=== PATIENT | female | born 1955 | race Caucasian/White ===

== ENCOUNTER 2016-09-16 05:52 | Emergency (ER) | payer SELFPAY ==
[~2016-09-16] VITALS: Ht 170.2 cm; Wt 129.1 kg
[~2016-09-16 05:52] MED LIST: AMIO400T4 PO; EVEP1CAP PO; LEVO75TA4 PO; METO100T3 PO; MULT-1018 PO; PANT40TA2 PO; WARF5TAB7 PO
[2016-09-16 05:55] VITALS: BP 134/80; PULSE 72; RESP 16; O2SAT 96
[2016-09-16] MEDS ORDERED: OMEP20TA24 PO (06:00)
[2016-09-16] MEDS ORDERED: METO50TA3 PO (06:00)
[2016-09-16] MEDS ORDERED: OXYB5TAB10 PO (06:00)
--- NOTE | 2016-09-16 06:23 | ED.REPORT ---
HPI-Abd Pain F 40 and Over Date of Service Sep 16, 2016 ED Provider: Leela Carmen MD A 61 year old female with a history of paroxysmal atrial tachycardia, chronic constipation and atrial fibrillation with ablation presents to the ED complaining of constipation. The pt has not had a normal bowel movement in two weeks, and is now experiencing waves of diffuse abdominal cramping, vomiting and diarrhea. The diarrhea began four days ago and is characterized by frequent episodes with small amounts of liquid stool, though she still feels constipated. She has been vomiting for two days and has noticed decreased appetite, but denies fever, chills or weakness. The pt has taken stool softeners in the last few days without significant relief. She has experienced constipation before, but her symptoms have never been this severe. Nursing Notes Stated Complaint: CONSTIPATED Chief Complaint: Female Abdominal Pain Nursing Notes Reviewed: Yes Allergies: Coded Allergies: barium iodide (Verified Allergy, Severe, Anaphylaxis, 09/16/16) procainamide (Verified Allergy, Severe, Shortness of Breath, 09/16/16) Iodinated Contrast- Oral and IV Dye (Verified Allergy, Mild, HOT AND DIZZY , 09/16/16) During XR IVP in the past experienced hot/flush feeling and dizziness, was given benadryl, told it was a reaction to iodine contrast. TAPE (Unverified Allergy, Mild, 09/16/16) celecoxib (Verified Allergy, Unknown, 09/16/16) paroxetine (Verified Allergy, Unknown, 09/16/16) Uncoded Allergies: MAKEUP (Allergy, Mild, 08/11/13) PERFUMES (Allergy, Mild, 08/11/13) SOAPS (Allergy, Mild, 08/11/13) Scheduled Evepr/Linoleic/Gamolenic/Cranb (Evening [employer] Oil Softgel) 1 Each Capsule 1 EACH PO DAILY Levothyroxine (Levothyroxine) 75 Mcg Tablet 75 MCG PO DAILY Metoprolol Tartrate (Metoprolol Tartrate) 50 Mg Tablet 50 MG PO BID Multivitamin (Multi Vitamin Daily) 1 Each Tablet 1 EACH PO DAILY Omeprazole Magnesium (Prilosec Otc) 20 Mg Tablet.dr 20 MG PO BID Oxybutynin Chloride (Oxybutynin Chloride) 5 Mg Tablet 5 MG PO BID Pantoprazole DR (Protonix) 40 Mg Tablet.dr 40 MG PO DAILY Warfarin Sodium (Warfarin Sodium) 5 Mg Tablet 5 MG PO DAILY General Time Seen by MD: 06:04 Chief Complaint Constipation Hx Obtained From: Patient Arrived By: Walk-in Sudden in Onset?: No Onset Occurred: More than a week ago... Symptom Duration: Since onset Recent Healthcare: No recent hospitalization, Recent doctor visit Similar Sx Previous: No Past Medical History Past Medical History paroxysmal atrial tachycardia chronic constipation atrial fibrillation with ablation Past Surgical History cardiac ablation right ovarian cyst surgery laproscopy Reports: Hysterectomy Smoking History Former Smoker Social History Other Social History: Good social support, Ambulatory Status Independent Review of Systems decreased appetite Constitutional: Denies: Chills, Fever, Weakness - generalized Respiratory: Denies: Non-productive cough, Shortness of breath GI: Reports: Abdominal pain, Constipation, Diarrhea, Nausea, Vomiting Musculoskeletal: Denies: Back pain, Neck pain Complete sys rev & neg: except as marked. Physical Exam Vital Signs Vital Signs (First) Date Time Temp Pulse Resp B/P Pulse Ox O2 Delivery O2 Flow Rate FiO2 09/16/16 05:55 36.5 72 16 134/80 96 Room Air Initial VS: Reviewed General/Constitutional: Awake, Alert Respiratory / Chest: Atraumatic, Breath sounds NL, Breath sounds = bilat, No respiratory distress Cardiovascular: Heart rate NL, Regular rhythm, Heart sounds NL Abdomen: Atraumatic, Soft Bowel Sounds / Distention: Positive: Bowel sounds hyperactive Shah's sign negative abdominal tenderness from LLQ to suprapubic area Back: Atraumatic, Full range of motion Head / Eyes: Atraumatic, Normocephalic, PERRL, EOMI ENT: Atraumatic, Airway patent, Mucous membranes moist Skin: Atraumatic, Color NL, No rash, Warm, Dry Rectum / Perineum: Atraumatic no stool in rectal vault guaiac negative Neurologic: Oriented X3, Speech NL, No motor deficits, No sensory deficits Neck: Atraumatic, Supple, Full range of motion Upper Extremity / MS: Atraumatic, Full range of motion Lower Extremity / Pelvis / MS: Atraumatic, Full range of motion Psychiatric: Affect NL, Mood NL Interpretation & Diagnostics Lab Results Interpretation Result Diagram: 09/16/16 0830 09/16/16 0830 Test 09/16/16 08:30 White Blood Count 13.0th/mm3 (3.8-10.1) Red Blood Count 4.42mil/mm3 (3.90-5.20) Hemoglobin 13.4g/dL (12.0-15.6) Hematocrit 41.7% (35.0-46.0) Mean Corpuscular Volume 94.3fL (81-100) Mean Corpuscular Hemoglobin 30.3pg (27.0-35.0) Mean Corpuscular Hemoglobin Concent 32.1% (32.0-37.0) Red Cell Distribution Width 13.4% (12.3-15.4) Platelet Count 236bil/L (150-400) Neutrophils (%) (Auto) 74.1% (40-74) Lymphocytes (%) (Auto) 13.4% (14-46) Monocytes (%) (Auto) 9.3% (4-12) Eosinophils (%) (Auto) 2.8% (0-5) Basophils (%) (Auto) 0.1% (0-3) Sodium Level 140mEq/L (134-144) Potassium Level 3.6mEq/L (3.5-5.2) Chloride Level 102mEq/L (97-108) Carbon Dioxide Level 23mmol/L (18-29) Blood Urea Nitrogen 13mg/dL (6-24) Creatinine 0.85mg/dL (0.57-1.00) Estimat Glomerular Filtration Rate 98mL/min (>59) Glucose Level 115mg/dL (60-99) Calcium Level 8.9mg/dL (8.5-10.1) Magnesium Level 2.0mg/dL (1.6-2.6) Total Bilirubin 0.5mg/dL (0.0-1.2) Aspartate Amino Transf (AST/SGOT) 14U/L (0-50) Alanine Aminotransferase (ALT/SGPT) 11U/L (0-32) Alkaline Phosphatase 79U/L (25-165) Total Protein 6.5g/dL (6.4-8.4) Albumin 3.6g/dL (3.4-5.0) Lipase 12U/L (13-60) X-Ray Abdominal Interpretation IMPRESSION: Nonspecific bowel gas pattern without definite evidence of obstruction. Dictated by: Betsey Loera MD, PhD on 09/16/2016 at 7:51 Approved by: Betsey Loera MD, PhD on 09/16/2016 at 7:52 Interpretation / Wet Read by: Interpret - Radiologist CT Abd / Pelvis Interpretation IMPRESSION: 1. There is a small amount of free fluid. No bowel thickening or obstruction. 2. Cholelithiasis. No CT evidence for acute cholecystitis. 3. Moderate-sized hiatal hernia. 4. Nodular groundglass infiltrates in the right lower lobe. Recommend ankle correlation for right lower lobe pneumonia or pneumonitis. 5. Small fat containing umbilical hernia. Dictated by: Angel Tompkins M.D. on 09/16/2016 at 8:59 Transcribed by: SARAVANAN on 09/16/2016 at 9:11 Interpretation / Wet Read by: Interpret - Radiologist Re-Eval/Medical Decision Med Decision/Clinical Course Presents with significant abdominal pain with liquid stool. Initial x-ray was done to see if there was evidence for obstruction or obvious significant fecal loading. Unremarkable abdominal series. Labs with low grade leukocytosis. CT scan obtained. No acute findings specifically no diverticulitis. Significant stool throughout the entire colon. Suspect that constipation is much more of her underlying primary issue and will treat as such. Questions were answered and findings were explained Source of Hx: Old records Re-Evaluation/Progress #1: Time of Eval: 07:27 Patient Status: Condition improved Re-Evaluation/Progress Note: Pt rechecked, whose pain has improved with medication. She is informed of her x-ray results and the need for further imaging studies. Re-Evaluation/Progress #2: Time of Eval: 09:36 Patient Status: Condition improved Re-Evaluation/Progress Note: Pt rechecked, who is comfortable. The diagnosis and plan for discharge are discussed. The pt understands and agrees with the plan. All questions are addressed at this time. Counseled Regarding: Diagnosis, Lab results, Need for follow-up, When/why to return to ED Discharge & Departure Primary Impression: Constipation Constipation type: unspecified constipation type Qualified Code: K59.00 - Constipation, unspecified Ruled Out: Diverticulitis, Pancreatitis, Appendicitis, UTI (urinary tract infection), Clostridium difficile diarrhea, Cholecystitis Disposition: Home Discharge Condition All VS Reviewed: Yes Condition: Stable Patient Instructions: Constipation (ED) Additional Instructions: Thank you for allowing us to be a part of your care. Your CT scan show no lifethreathenings issues but it does show significant constipation. I suspect that the majority of your symptoms are due to constipation. Drink one bottle of magnesium citrate today. If you do not get a significant return with a large amount of stool, drink another bottle tomorrow (available over the counter). Call your primary care physician to arrange a follow up appointment this week. Return to the emergency department if you develop any new or worsening symptoms. I hope you feel better! Referrals: Lamine Gleason ND (PCP) Erika Attestation Portions of this note were transcribed by Leo Duran. I, Dr. Carmen personally performed the history, physical exam and medical decision-making; I reviewed and confirmed the accuracy of the information in the transcribed note. Signed by: Erika Schaffer, 09/16/2016 and 1009. copies to: Lamine Gleason ND, Shawna L MD Sep 16, 2016 06:22 LEO DURAN Sep 16, 2016 06:32
[2016-09-16] MEDS ORDERED: oxyCODONE-Acetamin 5-325 mg Tablet PO ONE (06:45)
[2016-09-16 07:38] VITALS: BP 112/56; PULSE 62; O2SAT 96
--- NOTE | 2016-09-16 07:54 | DRSVH ---
PROCEDURE: X-RAY ACUTE ABDOMINAL SERIES ([id number]) INDICATIONS: abdominal pain TECHNIQUE: One view chest and two views of the abdomen were acquired. COMPARISON: None. FINDINGS: Surgical changes and devices: None. Chest: Lungs are clear. Heart size is normal. No pleural effusions. No pneumoperitoneum. Abdomen: Bowel gas pattern is nonspecific. No dilated loops of bowel are identified. Scattered air-f luid levels are noted.. No suspicious calcifications. Visualized solid organ contours appear normal . Bones: No suspicious bony lesions. IMPRESSION: Nonspecific bowel gas pattern without definite evidence of obstruction. Dictated by: Betsey Loera MD, PhD on 09/16/2016 at 7:51 Approved by: Betsey Loera MD, PhD on 09/16/2016 at 7:52
[2016-09-16] MEDS ORDERED: 0.9% Sodium Chloride 1,000 ML IV ONE (08:10)
[2016-09-16 08:48] LABS: BASOPHILS % (AUTO) 0.1 % (0-3); EOSINOPHILS % (AUTO) 2.8 % (0-5); MONOCYTES % (AUTO) 9.3 % (4-12); Mean Corpuscular Hemoglobin 30.3 pg (27.0-35.0); Mean Corpuscular Volume 94.3 fL (81-100); NEUTROPHILS % (AUTO) 74.1 % (40-74); Platelet Count 236 bil/L (150-400)
--- NOTE | 2016-09-16 09:12 | DRSVH ---
PROCEDURE: CT ABDOMEN AND PELVIS WITHOUT CONTRAST ([id number]) INDICATIONS: 61 year-old woman with abdominal pain, diarrhea. TECHNIQUE: After the administration of oral contrast, 5 mm thick sections acquired from the diaphragms to the sy mphysis. 5 mm coronal and sagittal reformats were performed. For radiation dose reduction, the foll owing was used: automated exposure control, adjustment of mA and/or kV according to patient size. COMPARISON: [facility], CR, XR ABD ACUTE SERIES 3VW, 09/16/2016, 6:50. [facility], CT, ANGIO CHEST WITH CONTRAST, 08/02/2013, 9:14. FINDINGS: Image quality: Excellent. ABDOMEN: Lung bases: Nodular groundglass infiltrates in the right lower lobe. Heart size is normal. There is a moderate-sized hiatal hernia. Solid organs: Liver and spleen are normal in size. Gallbladder contains multiple calcified gallston es. No gallbladder wall thickening or pericholecystic fluid collection. Pancreas is normal in size. No adrenal nodules. Both kidneys are normal in size, without hydronephrosis or nephrolithiasis. Peritoneum and bowel: There is a moderate amount of stool in colon. Small bowel loops demonstrate no rmal wall thickness and caliber. No free air. There is a small amount of free fluid. Nodes and vessels: No retroperitoneal or mesenteric adenopathy by size criteria. Aorta and inferior vena cava are normal in size. Miscellaneous: There is a small fat containing umbilical hernia. PELVIS: Genitourinary: Bladder wall thickness is normal. Miscellaneous: No inguinal hernias or adenopathy. Bones: No suspicious bony lesions. No vertebral body compression fractures. IMPRESSION: 1. There is a small amount of free fluid. No bowel thickening or obstruction. The CT finding is nonsp ecific and may be secondary to gastroenteritis. Recommend clinical correlation followup. 2. Cholelithiasis. No CT evidence for acute cholecystitis. 3. Moderate-sized hiatal hernia. 4. Nodular groundglass infiltrates in the right lower lobe. Recommend clinical correlation for right lower lobe pneumonia/pneumonitis. 5. Small fat containing umbilical hernia. Dictated by: Angel Tompkins M.D. on 09/16/2016 at 8:59 Transcribed by: SARAVANAN on 09/16/2016 at 9:11 Approved by: Angel Tompkins M.D. on 09/16/2016 at 9:42
== END 2016-09-16 10:17 | disposition home or self-care (01) ==
LOC: SED 05:52
DX: K59.00 Constipation, unspecified (principal); Z87.891 Personal history of nicotine dependence; Z90.710 Acquired absence of both cervix and uterus; Z79.01 Long term (current) use of anticoagulants; Z79.899 Other long term (current) drug therapy; Z88.1 Allergy status to other antibiotic agents; Z88.8 Allergy status to other drugs, medicaments and biological substances; Z91.041 Radiographic dye allergy status
CPT/HCPCS: 36415; 74022; 74176; 80053; 83690; 83735; 85025; 96360; 99285; J7030